=== PATIENT | female | born 1970 | race Caucasian/White ===

== ENCOUNTER 2018-10-05 11:06 | Inpatient (IN) | payer OTHER ==
[~2018-10-05] VITALS: Ht 157.5 cm; Wt 62.4 kg
[2018-10-05] MEDS ORDERED: REVLIMID10 MG PO (15:00)
[2018-10-05] MEDS ORDERED: FLEXERIL 1010 MG/TAB PO (18:30)
[2018-10-05] MEDS ORDERED: LEXAPRO 10MG10 MG PO (18:30)
[2018-10-05] MEDS ORDERED: ASPIRIN 81M81 MG/TA2 PO (18:30)
[2018-10-05] MEDS ORDERED: CLARITIN LIQUI-10 MG PO (18:30)
[2018-10-05] MEDS ORDERED: NEURONTIN100 MG/CAP PO (18:31)
[2018-10-05] MEDS ORDERED: QUESTRAN4 GM/9 GM PO (18:31)
[2018-10-05] MEDS ORDERED: COLESTID 1GM1 G PO (18:31)
--- NOTE | 2018-10-05 19:55 | NUR ---
Arrived to medical floor. Assessment complete. Lungs clear. Heart sounds normal. Bowels active x4. Pulses strong throughout. No edema noted. Orientated to medical floor and hospital. All questions answered. Will initate MAT MAKING MACHINE TENDER pump as ordered.
[2018-10-05 20:06] VITALS: BP 96/59; PULSE 55; TEMP 98.3
[2018-10-05 22:14] VITALS: BP 101/68; PULSE 58
--- NOTE | 2018-10-05 22:18 | NUR ---
VP PACKAGING started at 2215. Patient would like to be tranferred to [facility] in morning.
[2018-10-05 22:30] VITALS: BP 101/61; PULSE 56
[2018-10-05 22:45] VITALS: BP 98/72; PULSE 58
[2018-10-05 23:47] VITALS: BP 115/75; PULSE 60
--- NOTE | 2018-10-05 23:48 | NUR ---
Home Demonstration Agent reports oxygen saturation 83% on room air. Started on 1 liter via nasal cannula. Oxygen saturation 95%. Will monitor
[2018-10-06 00:31] VITALS: BP 112/77; PULSE 55
--- NOTE | 2018-10-06 01:55 | NUR ---
Tolerating ONCOLOGY NURSE well. Rating pain 4/10 at this time. Will monitor.
--- NOTE | 2018-10-06 03:12 | NUR ---
Resting in bed. TELEPHONE BETTING CLERK infusing. Tolerating well. Patient easy to arouse.
[2018-10-06 03:48] VITALS: BP 105/74; PULSE 65
--- NOTE | 2018-10-06 03:49 | NUR ---
Resting in bed. Denies needs at this time. Call light in reach.
--- NOTE | 2018-10-06 04:26 | NUR ---
Patient end tidal CO2 reading 65. Notified JV Spears. Stat ABG order. Patient alert and orientated. No change in signs or symptoms. Will monitor.
--- NOTE | 2018-10-06 05:14 | NUR ---
Patient started on bipap per Tory orders. Will closely monitor.
[2018-10-06 05:39] LABS: ARTERIAL BLD GAS O2 SATURATION 92.5 % (92-100); ARTERIAL BLD GAS TCO2 CT 23.7; ARTERIAL BLOOD GAS BASE EXCESS -5.3 (-2-2); ARTERIAL BLOOD GAS HCO3 22.1 meq/L (22-26); ARTERIAL BLOOD GAS PCO2 51.3 mmHg (35-45); ARTERIAL BLOOD GAS PO2 77.5 mmHg (80-100); ARTERIAL BLOOD GAS pH 7.25 (7.35-7.45)
--- NOTE | 2018-10-06 06:32 | NUR ---
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 NURSE GWENDOLYN IN MEDICAL FLOOR CALLED ME ABOUT PATIENT BECAUSE PT'S ETCO2 WAS RUNNING TO 54. I WENT TO PATIENT ROOM. I NOTICED PT WAS ON 1L ,CO2 WAS 38 ,56,29, IN SECONDS. I TALK TO PATIENT ,PT WAS ABLE TO GIVE ME A FULL SENTENCE. PT IS NOT LETHARGIC,AND NOT IN RESP DISTRESS. HR 65 RR 19 SAT 96% NURSE CALLED MY COWORKER 30MNS LATER ASKING THE SAME QUESTIONS. MY COWORKER STATES I DO NOT KNOW,BUT ASK VENKAT IF SHE MIGHT ORDER ABG. BUT BEFORE BEFORE I PERFORM ABG ,I CALLED VENKAT AND TELL HER MY POINT OF VIEW,AND WHAT I NOTICE WHILE I WAS IN PT'ROOM. VENKAT,NURSE PRACTITIONER STATES ,WELL THE NURSE SAID THE PT ET02 IS HIGH. I WENT AHEAD TO DO THE ABG AND CALL TO GIVE HER THE RESULT. PH 7.25 CO2 51 PO2 77. SHE STATES ,LET S PUT HER ON BIPAP. WELL, I TRIED TO TELL HER THE CLINICAL VIEW, SHE STATES SHE DOES NOT CARE AND SHE WANTS THE BIPAP ON. I PLACE PT ON BIPAP WITH NO ISSUES. BUT I ASKED ON THE PHONE TO PUT ORDER,AND SHE CALLED MY COWORKER TO GIVE HER BIPAP SETTINGS.16/8 RR 18. PT WAS PULLING A VT OF 780 RR 24.?? FRUIT DISTRIBUTOR ,I DO BELIEVE ON ABG,BUT AT LEAST COME TAKE A LOOK AT YOUR PATIENT TO MAKE A GOOD CLINICAL JUDGEMENT. MY COWORKER COMING ON DAYSHIFT REPEAT ABG 45MNS LATER AND ABG RESULT 7.27 C02 48 PO2 157 AND SHE NOTICED PT IS ALERT AND NOTICED NO RESP DISTRESS. FRUIT DISTRIBUTOR ,I UNDERSTAND WELL ABG. HOPEFULLY ,PT WILL BE OFF BIPAP SOON.
[2018-10-06 06:52] LABS: ARTERIAL BLD GAS O2 SATURATION 98.2 % (92-100); ARTERIAL BLD GAS TCO2 CT 23.5; ARTERIAL BLOOD GAS BASE EXCESS -4.9 (-2-2); ARTERIAL BLOOD GAS PCO2 48.5 mmHg (35-45); ARTERIAL BLOOD GAS pH 7.28 (7.35-7.45)
[2018-10-06 06:56] LABS: ARTERIAL BLOOD GAS PO2 159.2 mmHg (80-100)
[2018-10-06 06:59] LABS: BASO % 0.9 % (0.0-2.0); EOS # 0.1 (0.0-0.7); EOS % 2.6 % (0-4.0); GRAN # 1.5 (1.4-6.5); HEMOGLOBIN 11.2 g/dl (12.5-16.0); LYMPH # 0.2 (1.2-3.4); LYMPH % 9.1 % (20.0-51.0); MEAN CELL VOLUME 102 fl (80.0-100.0); MEAN CORPUSCULAR HEMOGLOBIN 34 pg (27.0-31.0); MEAN CORPUSCULAR HGB CONC 34 g/dl (33.0-37.0); MEAN PLATELET VOLUME 9.3 fl (7.4-10.4); MONO # 0.5 (0.1-0.6); PLATELET COUNT 159 K/mm3 (130-400); RED BLOOD COUNT 3.27 M/mm3 (4.10-5.30); REDCELL DISTRIBUTION WIDTH-CV 13.2 % (11.5-14.5)
[2018-10-06 07:01] LABS: HEMATOCRIT 33.3 % (37.0-47.0)
[2018-10-06 07:11] LABS: ALBUMIN 3.8 gm/dL (3.5-5.0); BILIRUBIN,TOTAL 0.9 mg/dL (0.0-1.0); CALCIUM 7.7 mg/dL (8.4-10.2); CREATININE, serum 0.74 (0.52-1.25); MAGNESIUM 1.8 mg/dL (1.6-2.3); POTASSIUM 3.4 mmol/L (3.4-5.0); TOTAL PROTEIN 6.9 gm/dL (6.4-8.2)
--- NOTE | 2018-10-06 07:12 | NUR ---
Report given to DARSHANA James. Patient continues on bipap with ETL INFORMATICA DEVELOPER shut off per verbal order from JV Spears. Recent ABG redrawn.
[2018-10-06 07:28] VITALS: BP 103/67; PULSE 68; TEMP 98.5
--- NOTE | 2018-10-06 09:00 | NUR ---
Patient assessment complete. Patient laying in bed. Lung sounds clear, heart RRR. patient denies chest pain, SOB, dizziness, N/V. Patient c/o severe back pain. 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 CO2 was high, patient ABGs drawn, patient put on BiPap last night. Patient on Bipap upon entry. Pulses strong bilaterally. denies other needs at this time. Rating pain 10/10. IV CDI. Call light within reach. patient cooperative with cares.
--- NOTE | 2018-10-06 09:50 | NUR ---
The patient is to transfer to [facility] in [place], [place] today, 10/06. No additional needs at this time.
--- NOTE | 2018-10-06 10:00 | NUR ---
Patient seen by Myriam with RT. Sats are 98%, patient taken off BiPap. Dr. Lema has visited with patient. Fentanyl patch, IV morphine and Percocet ordered. patient feels she "is playing catch up on the pain". Patient crying talking to Dr. Lema. Will administer PRN pain medications now. No other needs at this time. Call light within reach.
[2018-10-06 10:46] VITALS: BP 103/67; PULSE 68; TEMP 98.5
--- NOTE | 2018-10-06 11:13 | NUR ---
Patient being transferred to [place], [place]. Awaiting transport. Patient sitting in bed, brushing teeth. Daughter on her way.
--- NOTE | 2018-10-06 11:23 | NUR ---
First visit from the butt presser. No needs right now.
--- NOTE | 2018-10-06 12:15 | NUR ---
Patient transfered to [place], [place] via ambulance [facility]. Patient ambulated to [facility], no complications. patient information and packet given to [facility]. Patient has orders for Morphine 1-4 mg PRN, max 4 mg for transfer. Patient has no other needs at this time. This nurse will call to give report.
--- NOTE | 2018-10-06 13:32 | NUR ---
Patient report called to DARSHANA Ny at [facility] in [place], [place]. All questions answered.
== END 2018-10-06 12:15 | disposition short-term general hospital (02) | DRG 543 ==
LOC: COL.ER 11:06 → MEDICAL 18:21
PROVIDERS: Nurse Practitioner Family; ADMIT Internal Medicine
DX: M48.54XA Collapsed vertebra, not elsewhere classified, thoracic region, initial encounter for fracture (principal); C90.00 Multiple myeloma not having achieved remission; Z94.84 Stem cells transplant status
CPT/HCPCS: 99222-AI; 99239; J1170; J1644; J2270; J2550; J3010; J7030